=== PATIENT | male | born 1995 | race Two or more races ===

== ENCOUNTER 2022-08-29 11:30 | Emergency (ER) | payer OTHER ==
[~2022-08-29] VITALS: Ht 177.8 cm; Wt 99.9 kg
[2022-08-29] MEDS ORDERED: NEOSPORIN OINT 0.9 GM PKT TOP ONE (14:40)
[2022-08-29 14:51] VITALS: BP 132/66
[2022-08-29] MEDS ORDERED: IBUPROFEN 800 MG TAB PO ONE (14:55)
== END 2022-08-29 15:05 | disposition home or self-care (01) ==
LOC: M ED 11:30
DX: S60.413A Abrasion of left middle finger, initial encounter (principal); S60.415A Abrasion of left ring finger, initial encounter; W22.8XXA Striking against or struck by other objects, initial encounter; Y99.1 Military activity; Z88.0 Allergy status to penicillin